=== PATIENT | male | born 1980 | race Caucasian/White ===

== ENCOUNTER 2020-09-23 19:19 | Emergency (ER) | payer OTHER, SELFPAY ==
[2020-09-23 19:20] VITALS: BP 139/97; PULSE 106; RESP 19; TEMP 36.8; O2SAT 94
--- NOTE | 2020-09-23 19:34 | ECG_ITS ---
Measurements Intervals [place] Rate: 108 P: 15 TN: 132 QRS: -16 QRSD: 96 T: -2 QT: 320 QTc: 429 Interpretive Statements SINUS TACHYCARDIA INCOMPLETE RIGHT BUNDLE BRANCH BLOCK BORDERLINE ST-T WAVE ABNORMALITY- INFERIOR LEADS BASELINE WANDER- V4-V5 ABNORMAL ECG Electronically Signed On 09-23-2020 21:13:04 CDT by Jerry Eldridge D.O.
[2020-09-23 19:53] LABS: Basophils Percent Auto 0.4 % (0.2-1.2); Eosinophils Absolute Auto 0.1 K/mm3 (0-0.3); Eosinophils Percent Auto 0.7 % (0-4.4); Hematocrit 44.3 % (42.0-52.0); Hemoglobin 14.8 g/dL (14.0-18.0); Immature Granulocyte Absolute 0.05 K/mm3 (0.00-0.031); Immature Granulocyte Percent A 0.7 % (0-0.5); Lymphocytes Absolute Auto 1.19 K/mm3 (0.9-3.2); Mean Corpuscular HGB Conc 33.4 g/dl (32-36); Mean Corpuscular Hemoglobin 28.8 pg (26-34); Mean Corpuscular Volume 86.2 fl (80-100); Monocytes Absolute Auto 0.6 K/mm3 (0.1-0.6); Monocytes Percent Auto 8.7 % (2.6-8.5); Neutrophils Absolute Auto 5.1 K/mm3 (1.3-6.7); Neutrophils Percent Auto 72.5 % (45.5-73.1); Platelet Count Result 167 k/mm3 (150-375); Red Blood Count 5.14 M/mm3 (4.6-6.20); Red Cell Distribution Width 12.2 % (11.5-14.5)
[2020-09-23] MEDS: LORazepam (*CRX) 1 MG TABLET PO (19:56)
[2020-09-23 20:42] LABS: Alanine Aminotransferase 145 U/L (4-50); Albumin Level 4.5 g/dL (3.5-5.1); Alkaline Phosphatase 177 U/L (38-126); Anion Gap 10 mmol/L (8-16); Aspartate Amino Transferase 88 U/L (17-59); Bilirubin,Total 1.2 mg/dL (0.2-1.3); Blood Urea Nitrogen 19 mg/dL (9-20); Calcium 9.9 mg/dL (8.4-10.2); Carbon Dioxide 25 mmol/L (22-30); Chloride 98 mmol/L (98-107); Estimated CRCL calculation 122 ml/min; Estimated Glomerular Filt Rate > 60; Glucose 517 mg/dL (75-110); Potassium 4.4 mmol/L (3.4-5.0); Sodium 133 mmol/L (137-145)
[2020-09-23] MEDS: SODIUM CHLORIDE 0.9% IV 1,000 ML 999 ML IV CONT (21:07)
[2020-09-23] MEDS: INSULIN HUMAN REGULAR (*BKC) 100 UNITS/ML 10 UNITS IV PUSH (21:12)
[2020-09-23 22:13] LABS: Glucose Point of Care 344 mg/dl (65-105)
--- NOTE | 2020-09-23 22:16 | ED.GENADULT ---
HPI - General Adult General Chief complaint: Recheck/Abnormal Lab/Rx Stated complaint: PD custody/ high BS Time Seen by Provider: 09/23/20 19:22 Source: patient Mode of arrival: EMS Limitations: no limitations History of Present Illness HPI narrative: 40-year-old with a history of diabetes was brought in by EMS from home with complaints of panic attack. Patient was not domestic altercation with his . Patient states that his going through marriage counseling however insisted they want to get went into argument and later his called the police. Patient states that he was handcuffed and was brought here to the ER. Upon arrival patient states that he is feeling extremely anxious and not feeling well. He denied any chest pain or shortness of breath. Onset (ago): hour(s) (1) Severity: moderate Exacerbating factors: none Associated symptoms: denies other symptoms Related Data Home Medications Medication Instructions Recorded Confirmed lorazepam [Ativan] 1 mg PO TID PRN 09/23/20 metformin 1,000 mg PO DAILY 09/23/20 sitagliptin [Januvia] 100 mg PO DAILY 09/23/20 Allergies Allergy/AdvReac Type Severity Reaction Status Date / Time Cephalosporins Allergy Mild Unknown Verified 09/23/20 19:36 Sulfa (Sulfonamide Allergy Mild Unknown Verified 09/23/20 19:36 Antibiotics) cefaclor Allergy Unknown Unknown Verified 09/23/20 19:36 Penicillins Allergy Unknown Unknown Verified 09/23/20 19:36 Review of Systems Review of Systems: All systems reviewed & are unremarkable except as noted in HPI and below Constitutional: Constitutional: Reports no additional constitutional complaints Eyes: Eyes: Reports no additional eye complaints ENT: Reports system reviewed and no additional complaints, except as documented Cardiovascular: Cardiovascular: Reports no additional cardiovascular complaints Respiratory: Respiratory: Reports no additional respiratory complaints Gastrointestinal: Gastrointestinal: Reports no additional gastrointestinal complaints Neurologic: Reports system reviewed and no additional complaints, except as documented Psychiatric: Psychiatric: Reports anxiety Endocrine: Endocrine: Reports no additional endocrine complaints [facility] Family History Family History Father Family history of type 2 diabetes mellitus Mother Family history of type 2 diabetes mellitus Social History Social History Smoking status: Never smoker Alcohol intake: current Exam Narrative: Exam Narrative: GENERAL: Well-appearing, well-nourished, and in no acute distress., slow to in responding HEAD: Normocephalic, atraumatic. EYES: PERRLA and EOMI. ENT: Nares clear, no rhinorrhea or epistaxis. Mucous membranes moist. NECK: Supple. CHEST: Clear to auscultation. No respiratory distress. HEART: Regular rate and rhythm. No murmur heard. Normal peripheral pulses. ABDOMEN: Soft, nontender, nondistended, normal active bowel sounds. EXTREMITIES: Normal range of motion. No edema. SKIN: Warm, dry, no rash. NEURO: No focal deficits. Alert and oriented x3.tremor in the right hand PSYCH: Normal mood and affect. Course Course Emergency Course: As per the sheriff officer who was sent in by her house patient was cursing him all along and he changed his tone and worse when I walked in. However discussed labs with the patient and his sugar has dropped from 349. He does feel comfortable. Advised him to continue his home medication. Vital Signs Vital signs: Vital Signs Temperature 36.8 C 09/23/20 19:20 Pulse Rate 106 H 09/23/20 19:20 Respiratory Rate 09/23/20 19:20 Blood Pressure 139/97 H 09/23/20 19:20 Pulse Oximetry 94 09/23/20 19:20 Temperature 36.8 C 09/23/20 19:20 Pulse Rate 106 H 09/23/20 19:20 Respiratory Rate 09/23/20 19:20 Blood Pressure 139/97 H 09/23/20 19:20 Pulse Oximetry 94
[2020-09-23 22:40] VITALS: BP 127/90; PULSE 96; RESP 22; O2SAT 94
== END 2020-09-23 22:43 ==
PROVIDERS: Emergency Provider Family Medicine
DX: F41.9 Anxiety disorder, unspecified (principal); E11.65 Type 2 diabetes mellitus with hyperglycemia; Z79.4 Long term (current) use of insulin; R00.0 Tachycardia, unspecified; I45.10 Unspecified right bundle-branch block; R94.31 Abnormal electrocardiogram [ECG] [EKG]
CPT/HCPCS: 36415; 80053; 82948; 85025; 93005; 96361; 96374; 99284; A9270; J1815; J7030

== ENCOUNTER 2020-10-04 03:14 | Emergency (ER) | payer OTHER, SELFPAY ==
--- NOTE | ~2020-10-04 | CT_ITS ---
EXAMINATION: CT facial bones wo con DATE: 10/04/2020 06:10 INDICATION: Head injury, facial injury TECHNIQUE: Computed tomography (CT) of the facial bones and maxillofacial region was performed withou t intravenous contrast. Automated exposure control and iterative reconstruction technique were employ ed. Exam dose: 320.17 mGy-cm total exam DLP. COMPARISON: None. FINDINGS: The frontozygomatic sutures, orbital rims and larson, zygomatic arches, nasal bones and the remainder of the facial bones are intact. Normal alignment at the temporomandibular joints. No mandib le fracture is evident. Small mucus retention cyst or polyp at the posterior floor of the right maxillary sinus. IMPRESSION: No facial fracture Reviewed, dictated and finalized at [facility]. Reviewed, dictated and finalized at [facility]. IMPRESSION: No facial fracture
--- NOTE | ~2020-10-04 | XR_ITS ---
XR hand LT min 3V DATE: 10/04/2020 06:14 INDICATION: Left hand pain after police dog bite TECHNIQUE: 3 views COMPARISON: None FINDINGS: No subcutaneous emphysema or radiopaque foreign body is evident. No fracture, dislocation, periosteal reaction or bone destruction. IMPRESSION: Negative Reviewed, dictated and finalized at [facility]. IMPRESSION: Negative
--- NOTE | ~2020-10-04 | CT_ITS ---
EXAMINATION: CT brain wo con DATE: 10/04/2020 06:10 INDICATION: Head injury TECHNIQUE: Computed tomography (CT) of the head was performed without intravenous contrast. The mA wa s adjusted according to patient size. Iterative reconstruction technique was employed. Exam dose: 60 5.33 mGy-cm total exam DLP. COMPARISON: None FINDINGS: Limited examination due to motion artifact on both sets of imaging. No intracranial mass lesion or hemorrhage or cerebrovascular accident, midline shift or mass effect o r subdural or epidural hematoma is evident. Normal ventricular size. No skull fracture or bone destruction is evident. IMPRESSION: Limited examination due to motion artifact; no acute intracranial abnormality or skull f racture is evident Reviewed, dictated and finalized at [facility]. Reviewed, dictated and finalized at [facility]. IMPRESSION: Limited examination due to motion artifact; no acute intracranial abnormality or skull fracture is evident
[2020-10-04 03:12] VITALS: BP 127/81; PULSE 117; RESP 17; TEMP 37; O2SAT 96
[2020-10-04 05:12] LABS: Add Urine Microscopic? YES; Appearance Urine Clear (Clear); Bilirubin Urine Negative (Negative); Blood Urine 1+ (Negative); Color Urine Yellow (Yellow); Glucose Urine UA 3+ mg/dL (Negative); Ketones Urine Trace mg/dL (Negative); Leukocyte Esterase Ur Negative LEU/UL (Negative); Mucus Urine Rare /lpf; Nitrate Urine Negative (Negative); Protein Urine 1+ mg/dL (Negative); Urobilinogen Urine Negative mg/dL (<2.0); WBC Urine 0-3 /hpf
[2020-10-04 05:14] LABS: Alanine Aminotransferase 169 U/L (4-50); Albumin Level 4.7 g/dL (3.5-5.1); Alkaline Phosphatase 152 U/L (38-126); Anion Gap 19 mmol/L (8-16); Aspartate Amino Transferase 117 U/L (17-59); Blood Urea Nitrogen 12 mg/dL (9-20); Calcium 9.3 mg/dL (8.4-10.2); Carbon Dioxide 16 mmol/L (22-30); Chloride 107 mmol/L (98-107); Estimated CRCL calculation 109 ml/min; Estimated Glomerular Filt Rate > 60; Ethanol 212 mg/dL (<10); Glucose 356 mg/dL (65-110); Phosphorus 3.1 mg/dL (2.5-4.5); Potassium 5.1 mmol/L (3.4-5.0); Sodium 142 mmol/L (137-145)
[2020-10-04 05:16] LABS: Amphetamine Screen Urine Negative (Negative); Barbiturate Screen Urine Negative (Negative); Benzodiazepines Screen Urine Negative (Negative); Cannabinoid Screen Urine Negative (Negative); Cocaine Screen Urine Negative (Negative); Methadone Screen Urine Negative (Negative); Opiate Screen Urine Negative (Negative); Phencyclidine Screen Urine Negative (Negative)
[2020-10-04 05:22] LABS: Specific Grav Ur 1.035 (1.001-1.035)
[2020-10-04 05:23] LABS: Beta-Hydroxybutyrate/Acetoacetate 0.22 mmol/L (0.02-0.27)
[2020-10-04] MEDS: SODIUM CHLORIDE 0.9% IV 1,000 ML 999 ML IV CONT ×2 (05:53→06:39)
[2020-10-04 06:02] LABS: Basophils Percent Auto 0.4 % (0.2-1.2); Hematocrit 42.8 % (42.0-52.0); Hemoglobin 14.3 g/dL (14.0-18.0); Immature Granulocyte Absolute 0.06 K/mm3 (0.00-0.031); Immature Granulocyte Percent A 0.5 % (0-0.5); Lymphocytes Absolute Auto 1.05 K/mm3 (0.9-3.2); Lymphocytes Percent Auto 9.6 % (18.3-44.2); Mean Corpuscular HGB Conc 33.4 g/dl (32-36); Mean Corpuscular Volume 86.8 fl (80-100); Mean Platelet Volume 10.1 fl (7.4-10.4); Monocytes Absolute Auto 0.6 K/mm3 (0.1-0.6); Monocytes Percent Auto 5.8 % (2.6-8.5); Neutrophils Absolute Auto 9.2 K/mm3 (1.3-6.7); Neutrophils Percent Auto 83.7 % (45.5-73.1); Platelet Count Result 203 k/mm3 (150-375); Red Blood Count 4.93 M/mm3 (4.6-6.20); Red Cell Distribution Width 12.6 % (11.5-14.5)
[2020-10-04 06:12] LABS: Creatine Kinase 206 U/L (55-170)
[2020-10-04] MEDS: MOXIFLOXACIN HCL 400 MG TABLET PO (06:39)
[2020-10-04 06:42] VITALS: BP 130/82; PULSE 108; RESP 22; RESP 24; O2SAT 100
[2020-10-04 06:45] VITALS: PULSE 106; RESP 25
[2020-10-04 06:47] VITALS: BP 107/60; PULSE 107; RESP 23
--- NOTE | 2020-10-04 07:09 | ED.GENADULT ---
HPI - General Adult General Chief complaint: Altered Mental Status Stated complaint: tased/ bitten by police dog/ pepper sprayed Time Seen by Provider: 10/04/20 04:58 Source: patient, RN notes reviewed and police Mode of arrival: EMS Limitations: intoxication History of Present Illness HPI narrative: This is a 40 year old male with history of Depression, anxiety, PTSD and DM who presents in police custody for evaluation after an arrest. Police states that patient was running from them and he was tased multiple times. They reports he was bitten on of left forearm by their canine. They report he has abrasions to his head because he was hitting his head on the concrete and fighting them during the arrest. Patient was arrested due to car nguyen and attempting to run into someone's house. PAtient complaints of pain all over and his pain is worse in his left wrist and hand. He denies drug use. Related Data Home Medications Medication Instructions Recorded Confirmed lorazepam [Ativan] 1 mg PO TID PRN 09/23/20 metformin 1,000 mg PO DAILY 09/23/20 sitagliptin [Januvia] 100 mg PO DAILY 09/23/20 Allergies Allergy/AdvReac Type Severity Reaction Status Date / Time Cephalosporins Allergy Mild Unknown Verified 09/23/20 19:36 Sulfa (Sulfonamide Allergy Mild Unknown Verified 09/23/20 19:36 Antibiotics) cefaclor Allergy Unknown Unknown Verified 09/23/20 19:36 Penicillins Allergy Unknown Unknown Verified 09/23/20 19:36 Review of Systems Review of Systems: All systems reviewed & are unremarkable except as noted in HPI and below Constitutional: Constitutional: Denies chills and Denies fever(s) Cardiovascular: Cardiovascular: Denies chest pain Respiratory: Respiratory: Denies cough and Denies dyspnea Gastrointestinal: Gastrointestinal: Denies abdominal pain, Denies nausea and Denies vomiting Neurologic: Denies headache(s) [facility] Past Medical History Medical History (Updated 10/04/20 @ 08:02 by Jaylene Schulte MD) Depression Diabetes mellitus PTSD (post-traumatic stress disorder) Family History Family History Father Family history of type 2 diabetes mellitus Mother Family history of type 2 diabetes mellitus Social History Social History Smoking status: Never smoker Alcohol intake: current Exam Const: General: alert and diaphoretic Orientation/consciousness: patient oriented x3 HENMT: Other: multiple abrasions to forehead, super ficial laceration right cheek, no oral mucosa laceration Eyes: Pupils: Equal, round and reactive pupils present EOM: EOMs intact bilaterally Chest: Chest palpation & inspection: normal inspection of the chest Resp: Effort & Inspection: normal respiratory effort and no retractions Auscultation: clear to auscultation bilaterally Cardio: Rate: tachycardic Rhythm: regular rhythm Heart sounds: no murmurs GI: GI Palp: Yes Soft to palpation, No Tenderness to palpation present (GI) and No Guarding due to palpation present (GI) Auscultation: normal bowel sounds Neuro: General: patient oriented x3 and moves all extremities Extrem: Other: abrasion to left dorsum hand. puncture wound to left forearm Psych: Mental Status: mental status grossly normal Affect: normal affect Course Reevaluation(s) Reevaluation #1: PAtient is calm. He has not complaints. He does not have have DKA. He was intoxicated but he is appears to be sober now. Date: 10/04/20 Time: 07:21 Vital Signs Vital signs: Vital Signs Temperature 98.6 F 10/04/20 03:12 Pulse Rate 117 H 10/04/20 03:12 Respiratory Rate 17 10/04/20 03:12 Blood Pressure 127/81 10/04/20 03:12 Pulse Oximetry 96 10/04/20 03:12 Temperature 98.6 F 10/04/20 03:12 Pulse Rate 76 10/04/20 07:36 Respiratory Rate 18 10/04/20 07:36 Blood Pressure 121/80 10/04/20 07:36 Pulse Oximetry 94
[2020-10-04 07:20] LABS: Glucose Point of Care 356 mg/dl (65-105)
[2020-10-04] MEDS: INSULIN HUMAN REGULAR (*BKC) 100 UNITS/ML 8 UNITS IV PUSH (07:27)
[2020-10-04 07:36] VITALS: BP 121/80; PULSE 76; RESP 18; O2SAT 94
[2020-10-04 08:07] LABS: Glucose Point of Care 318 mg/dl (65-105)
== END 2020-10-04 08:13 ==
PROVIDERS: Emergency Provider General Practice
DX: S51.852A Open bite of left forearm, initial encounter (principal); S60.512A Abrasion of left hand, initial encounter; S00.81XA Abrasion of other part of head, initial encounter; F32.9 Major depressive disorder, single episode, unspecified; E11.9 Type 2 diabetes mellitus without complications; F43.10 Post-traumatic stress disorder, unspecified; Z79.84 Long term (current) use of oral hypoglycemic drugs; Z79.899 Other long term (current) drug therapy; F10.129 Alcohol abuse with intoxication, unspecified; Y90.7 Blood alcohol level of 200-239 mg/100 ml; Y35.833A Legal intervention involving a conducted energy device, suspect injured, initial encounter; W54.0XXA Bitten by dog, initial encounter
CPT/HCPCS: 36415; 51701; 70450; 70486; 73130; 80053; 80307; 81001; 82010; 82550; 82948; 83735; 84100; 85025; 96361; 96374; 99284; A9270; J1815; J7030